=== PATIENT | female | born 1990 | race Caucasian/White ===

== ENCOUNTER 2016-08-08 18:17 | Outpatient (CLI) | payer MEDICAID ==
[~2016-08-08] VITALS: Ht 170.2 cm; Wt 103.3 kg
[2016-08-08 18:37] VITALS: Ht 170.2 cm; Wt 103.3 kg
[2016-08-08] MEDS ORDERED: PRENAT PO (18:39)
[2016-08-08] MEDS ORDERED: CALC-143 PO (18:39)
[2016-08-08 19:22] LABS: ADD SCAN DIFF NO
[2016-08-08 19:24] LABS: ADD UMIC YES; URINE BILIRUBIN (Dip) NEGATIVE (NEGATIVE); URINE BLOOD (Dip) NEGATIVE (NEGATIVE); URINE COLOR LT. YELLOW (YELLOW); URINE GLUCOSE (Dip) NEGATIVE (NEGATIVE); URINE KETONES (Dip) NEGATIVE (NEGATIVE); URINE LEUKOCYTE ESTERASE (Dip) NEGATIVE (NEGATIVE); URINE NITRITE (Dip) NEGATIVE (NEGATIVE); URINE TOTAL PROTEIN (Dip) 4+ (NEGATIVE); URINE UROBILINOGEN (Dip) 0.2 E.U./dL (0.1-1.0)
[2016-08-08 19:26] LABS: BASOPHILS % 0.3 % (0.0-2.0); EOSINOPHILS # 0.1 10^3/ul (0.0-0.5); HEMATOCRIT 33.9 % (37.0-47.0); HEMOGLOBIN 11.7 g/dl (12.0-16.0); MEAN CORPUSCULAR HEMOGLOBIN 31.8 pg (29.0-33.0); MEAN CORPUSCULAR HGB CONC 34.5 g/dl (32.0-37.0); MEAN CORPUSCULAR VOLUME 92.1 fl (82.0-101.0); MEAN PLATELET VOLUME 13.5 fl (7.4-10.4); MONOCYTE # 0.6 10^3/ul (0.3-0.9); MONOCYTES % 6.8 % (0.0-11.0); NEUTROPHILS % 68.3 % (39.0-77.0); PLATELET COUNT 169 10^3/UL (140-415); RED BLOOD COUNT 3.68 10^6/ul (4.20-5.40); RED CELL DISTRIBUTION WIDTH 12.4 % (11.5-14.5); WHITE BLOOD COUNT 8.8 10^3/ul (4.8-10.8)
--- NOTE | 2016-08-08 19:36 | RADRPT ---
PROCEDURE: Obstetrical ultrasound greater than 14 weeks CLINICAL INDICATION: induced hypertension. Evaluate amniotic fluid index. TECHNIQUE: Real time sonographic imaging of the gravid uterus is performed transabdominally and mu ltiple static quintero scale and Doppler images are submitted for review as are measurements. The image s are reviewed on the PACS. COMPARISON: No relevant exams are available FINDINGS: There is a single living intrauterine gestation in cephalic to variable presentation. The he art beat is estimated at 143 bpm. The measurements are as follows: BPD:5.63 cm HC:20.43 cm AC:20.89 cm FL:4.08 cm Estimated gestational age is 23 weeks 4 days. The estimated date of delivery is 12/01/2016. The estimated weight is 675 grams. Placenta is anterior and grade 0. There is no evidence of placenta previa or abruption. The maximum vertical pocket measuring the amniotic fluid is normal estimated at 8.6 cm. RPTAT:HJJR IMPRESSION: 1. Single viable intrauterine gestation estimated at 23 weeks 4 days with the estimated date of deli very 12/01/2016. 2. Maximum vertical pocket measurement of 8.6 cm indicates amniotic fluid within the limits of amparo l. Physician Jeimy Date Time Electronically viewed and signed by Physician Jeimy on 08/08/2016 19:35 JR/
[2016-08-08 19:38] LABS: BACTERIA,URINE FEW; SQUAMOUS EPITHELIAL CELL,UR MANY; URINE RBCS NONE SEEN /HPF (0)
[2016-08-08 19:46] LABS: POTASSIUM 3.8 mmol/L (3.5-5.1)
[2016-08-08 19:48] LABS: ALBUMIN/GLOBULIN RATIO 1.07; BILIRUBIN,INDIRECT 0.1 mg/dl (0-1.1); BILIRUBIN,TOTAL 0.1 mg/dl (0.2-1.3); CREATININE 0.59 mg/dl (0.44-1.00); TOTAL PROTEIN 5.8 g/dl (6.1-8.1)
[2016-08-08 19:49] LABS: CALCIUM 8.8 mg/dl (8.4-10.2); URIC ACID 4.9 mg/dl (3.1-7.9)
--- NOTE | 2016-08-08 21:07 | PN ---
Date/Time of Note Date/Time of Note DATE: 08/08/16 TIME: 20:57 OB Subjective Subjective Subjective 26 yo P0 @ 23wks 6 days was sent from clinic for BP 138/89. She had no other elevated BP's, per patient She was told to do a 24 hr urine on Friday and the result on was 2500 Denies headache, blurry vision, or RUQ pain Nml labs, w/ exception of u/a, which has 4+ protein BP's in triage 115-120/62-89 OB Objective Objective Objective Nml labs, except u/a, 4+ protein Abdomen- gravid, n/t +FH no ctx OB Assessment/Plan Other Assessment: 26 yo P0 @ 23+ wks, r/o PIH Other plan: Nml BP's; elevated 24 hr urine, per Dr. Laurent Since patient has nml BP's and labs, will d/c home patient must return in morning for BP check or to Dr. Laurent's office Must return if headache, blurry vision, or RUQ pain DEJA SIMPSON MD Aug 08, 2016 21:07
--- NOTE | 2016-08-08 21:33 | TRIAGE ---
OB Triage Datetime Report Generated by CPN: 08/08/2016 21:33 Datetime: 08/08/2016 20:40 Stage of : OB Triage Datetime: 08/08/2016 20:30 Labor Evaluation Frequency: 0 Monitor Mode: External Datetime: 08/08/2016 19:57 Labor Evaluation Frequency: 0 Monitor Mode: External Datetime: 08/08/2016 19:25 Assessment Type: Triage Maternal Assessment Level of Consciousness: Fully Conscious DTR's/Clonus: DTRs 2+; No Clonus Headache: Denies Blurred Vision: No Respiratory Effort: Unlabored; Regular Rhythm; Equal Expansion Breath Sounds, Left: Clear and Equal Breath Sounds, Right: Clear and Equal Nausea/Vomiting: Denies RUQ Epigastric Pain: Denies Lower Extremities Edema: None Degree: None Upper Extremities Edema: None Degree: None Facial Edema: None Fall Risk Assessment History of Falling: (0) No Secondary Diagnosis: (0) No Ambulatory Aid: (0) Bedrest/Nurse Assist IV Therapy: (0) No Gait: (0) Normal/Bedrest/Immobile Mental Status: (0) Oriented to Own Ability Fall Score: 0 Fall Risk Score Definition: No Risk: No action required Datetime: 08/08/2016 19:23 Heart Rate FHR Baseline Rate: 155 Monitor Mode: Doppler Datetime: 08/08/2016 18:32 Stage of : OB Triage Assessment Type: Triage Maternal Assessment Level of Consciousness: Fully Conscious DTR's/Clonus: DTRs 2+; No Clonus Headache: Denies Blurred Vision: No Respiratory Effort: Unlabored; Regular Rhythm; Equal Expansion Breath Sounds, Left: Clear and Equal Breath Sounds, Right: Clear and Equal Nausea/Vomiting: Denies RUQ Epigastric Pain: Denies Lower Extremities Edema: None Degree: None Upper Extremities Edema: None Degree: None Facial Edema: None Temperature Route: Axillary Fall Risk Assessment History of Falling: (0) No Secondary Diagnosis: (0) No Ambulatory Aid: (0) Bedrest/Nurse Assist IV Therapy: (0) No Gait: (0) Normal/Bedrest/Immobile Mental Status: (0) Oriented to Own Ability Fall Score: 0 Fall Risk Score Definition: No Risk: No action required Labor Evaluation Frequency: 0 Monitor Mode: External Resting Tone [place]: Relaxed Heart Rate FHR Baseline Rate: 155 (Annotations: U/S HELD X 1 MIN DUE TO GESTATIONAL AGE) Monitor Mode: External US Decelerations: None Pain Assessment Pain Scale: 0 Pain Presence: None/Denies Pain Type: N/A Pain Goal: 3 Pain Relief Measures: Comfort Measures Datetime: 08/08/2016 18:27 EGA: 23.6 Datetime: 08/08/2016 18:26 Time of Arrival: 08/08/2016 18:13 Arrived By: Ambulatory Arrived From: Dr. Morley Chief Complaint: SENT FROM OFFICE TO R/O PIH, Movement: Present Contractions: Denies/Absent Rupture of Membranes: Denies Vaginal Bleeding: None Vaginal Discharge: Denies Recent Sexual Intercouse: Denies Abdominal Trauma: Not Applicable Time Provider Notified: 08/08/2016 20:23 Provider Notified: DR PERLA Initial Plan: MONITOR, 24 HR URINE, CBC, CMP, URIC ACID, U/A
== END 2016-08-08 20:40 | disposition home or self-care (01) ==
LOC: OBT 18:17 → L-D 18:18 → OBT 20:40
PROVIDERS: ATTEND Obstetrics & Gynecology
DX: O26.892 Other specified pregnancy related conditions, second trimester (principal); R03.0 Elevated blood-pressure reading, without diagnosis of hypertension; Z3A.23 23 weeks gestation of pregnancy
CPT/HCPCS: 36415; 76815; 80053; 81001; 84560; 85025; Z7500; 81003; G0463